=== PATIENT | male | born 1990 | race Caucasian/White ===

== ENCOUNTER 2018-10-10 06:20 | Emergency (ER) | payer OTHER ==
[~2018-10-10] VITALS: Ht 185.4 cm; Wt 128.4 kg
[2018-10-10] MEDS ORDERED: ondansetron/PF 4mg/2ml inj IV ONE (06:50)
[2018-10-10] MEDS ORDERED: normal saline 1000ML IV soln IVB ONE (06:50)
[2018-10-10] MEDS ORDERED: morphine 4 MG/ML inj SYRINge IV ONE (06:50)
[2018-10-10 07:30] LABS: BASOPHILS % (AUTO) 0.2 % (0-1); EOSINOPHILS % (AUTO) 0 % (0-6); HEMATOCRIT 48.4 % (42.0-52.0); HEMOGLOBIN 16.4 g/dl (14.0-17.9); LYMPHOCYTES % (AUTO) 17.5 % (21-51); MEAN CORPUSCULAR HEMOGLOBIN 29.8 PG (27.0-31.0); MEAN CORPUSCULAR HGB CONC 33.8 % (33.0-36.5); MEAN CORPUSCULAR VOLUME 88.1 FL (78-98); MEAN PLATELET VOLUME 7.9 FL (7.4-10.4); MONOCYTES # (AUTO) 0.3 X10'3 (0-0.9); MONOCYTES % (AUTO) 2.9 % (2-12); NEUTROPHILS # (AUTO) 8.9 X10'3 (1.8-7.7); NEUTROPHILS % (AUTO) 79.4 % (42-75); PLATELET COUNT 236 X10'3 (140-440); RED BLOOD COUNT 5.49 X10'6 (4.70-6.10); WHITE BLOOD COUNT 11.3 X10'3 (4.5-11.0)
[2018-10-10] MEDS ORDERED: LORazepam 2 mg/ml vial IV ONE (07:35)
[2018-10-10 07:43] LABS: CLARITY,URINE CLEAR (Clear); COLOR,URINE YELLOW (Yellow); GLUCOSE, URINE NEGATIVE (Neg); KETONES,URINE NEGATIVE (Neg); LEUKOCYTE ESTERASE ,URINE NEGATIVE (Neg); NITRITES, URINE NEGATIVE (Neg); OCCULT BLOOD,URINE NEGATIVE (Neg); PH,URINE 8.5 (4.8-8.0); PROTEIN,URINE NEGATIVE (Neg); UROBILINOGEN,URINE 0.2 E.U/dL (0.2-1.0)
[2018-10-10 07:44] LABS: INR 1.1 INR; PROTHROMBIN TIME 10.7 SECONDS (9.0-12.0)
[2018-10-10 07:44] LABS: UA COLLECTION TYPE CLN CATCH MIDSTREAM
[2018-10-10 07:45] LABS: ALANINE AMINOTRANSFERASE 59 U/L (12-78); ALBUMIN 4.6 G/DL (3.4-5.0); ALBUMIN/GLOBULIN RATIO 1.2 (1.1-1.5); ALKALINE PHOSPHATASE 73 IU/L (46-116); ANION GAP 12 (8-16); ASPARTATE AMINO TRANSFERASE 20 U/L (10-37); BILIRUBIN,TOTAL 0.7 MG/DL (0.1-1.0); BLOOD UREA NITROGEN 14 MG/DL (7-18); BUN/CREATININE RATIO 10.6 (5.4-32.0); CALCIUM 9.4 MG/DL (8.5-10.1); CHLORIDE 101 MMOL/L (99-107); CREATININE 1.32 MG/DL (0.60-1.10); GLUCOSE 122 MG/DL (70-104); LIPASE 72 U/L (73-393); POTASSIUM 3.4 MMOL/L (3.5-5.1); SODIUM 139 MMOL/L (135-145); TOTAL PROTEIN 8.6 G/DL (6.4-8.2); eGFR 65 ML/MIN
[2018-10-10 08:11] VITALS: BP 166/89
[2018-10-10] MEDS ORDERED: ONDA4TAB12 PO (08:51)
[2018-10-10] MEDS ORDERED: LORA0.5T PO (08:51)
[2018-10-11] MEDS ORDERED: DICY10CA88 PO (00:47)
[2018-10-11] MEDS ORDERED: POTA20TA19 PO (00:48)
== END 2018-10-10 09:03 | disposition home or self-care (01) ==
LOC: ER 06:21
DX: R10.84 Generalized abdominal pain (principal); R10.30 Lower abdominal pain, unspecified; R11.2 Nausea with vomiting, unspecified; E27.9 Disorder of adrenal gland, unspecified; F12.90 Cannabis use, unspecified, uncomplicated; Z88.1 Allergy status to other antibiotic agents
CPT/HCPCS: 36415; 74176; 80053; 81003; 83690; 85025; 85610; 96361; 96374; 96375; 99284; J2060; J2270; J2405; J7030

== ENCOUNTER 2018-10-10 19:19 | Emergency (ER) | payer OTHER ==
[~2018-10-10] VITALS: Ht 185.4 cm; Wt 131.0 kg
[~2018-10-10 19:19] MED LIST: LORA0.5T PO; ONDA4TAB12 PO
[2018-10-10] MEDS ORDERED: morphine 4 MG/ML inj SYRINge IV ONE (21:55)
[2018-10-10] MEDS ORDERED: normal saline 1000ML IV soln IVB ONE (21:55)
[2018-10-10] MEDS ORDERED: ketorolac trometh. 30mg/ml inj. IV ONE (21:55)
[2018-10-10] MEDS ORDERED: dicyclomine 10 MG capsule PO ONE (21:55)
[2018-10-10] MEDS ORDERED: normal saline 1000ml 1,000 ML IV ONE (21:55)
[2018-10-10] MEDS ORDERED: metoclopramide 5 mg/ml inj IV ONE (21:55)
[2018-10-10 22:33] LABS: CLARITY,URINE CLEAR (Clear); COLOR,URINE YELLOW (Yellow); GLUCOSE, URINE NEGATIVE (Neg); KETONES,URINE 15 mg/dl (Neg); LEUKOCYTE ESTERASE ,URINE NEGATIVE (Neg); NITRITES, URINE NEGATIVE (Neg); OCCULT BLOOD,URINE NEGATIVE (Neg); PH,URINE 7.5 (4.8-8.0); PROTEIN,URINE NEGATIVE (Neg); UROBILINOGEN,URINE 0.2 E.U/dL (0.2-1.0)
[2018-10-10 22:34] LABS: UA COLLECTION TYPE URINAL
[2018-10-10 22:37] LABS: URINE AMPHETAMINE SCREEN NEGATIVE (Neg); URINE BARBITUATE SCREEN NEGATIVE (Neg); URINE BENZODIAZEPINES SCREEN NEGATIVE (Neg); URINE CANNABINOID SCREEN POSITIVE (Neg); URINE COCAINE SCREEN NEGATIVE (Neg); URINE METHADONE SCREEN NEGATIVE (Neg); URINE OPIATE SCREEN NEGATIVE (Neg); URINE PHENCYCLIDINE SCREEN NEGATIVE (Neg)
[2018-10-10 22:41] LABS: ALANINE AMINOTRANSFERASE 45 U/L (12-78); ALBUMIN 4.3 G/DL (3.4-5.0); ALBUMIN/GLOBULIN RATIO 1.3 (1.1-1.5); ALKALINE PHOSPHATASE 70 IU/L (46-116); ANION GAP 16 (8-16); ASPARTATE AMINO TRANSFERASE 17 U/L (10-37); BILIRUBIN,TOTAL 0.9 MG/DL (0.1-1.0); BLOOD UREA NITROGEN 14 MG/DL (7-18); BUN/CREATININE RATIO 11.6 (5.4-32.0); CALCIUM 9.2 MG/DL (8.5-10.1); CHLORIDE 100 MMOL/L (99-107); CREATININE 1.21 MG/DL (0.60-1.10); GLUCOSE 110 MG/DL (70-104); LIPASE 60 U/L (73-393); SODIUM 138 MMOL/L (135-145); TOTAL CARBON DIOXIDE 22.5 MMOL/L (24-32); TOTAL PROTEIN 7.7 G/DL (6.4-8.2); eGFR 72 ML/MIN
[2018-10-10 22:44] LABS: BASOPHILS % (AUTO) 0.1 % (0-1); EOSINOPHILS % (AUTO) 0.1 % (0-6); HEMATOCRIT 46.4 % (42.0-52.0); HEMOGLOBIN 15.6 g/dl (14.0-17.9); LYMPHOCYTES # (AUTO) 2.3 X10'3 (1.1-4.8); MEAN CORPUSCULAR HEMOGLOBIN 29.7 PG (27.0-31.0); MEAN CORPUSCULAR HGB CONC 33.5 % (33.0-36.5); MEAN CORPUSCULAR VOLUME 88.6 FL (78-98); MONOCYTES # (AUTO) 0.5 X10'3 (0-0.9); MONOCYTES % (AUTO) 3.8 % (2-12); NEUTROPHILS # (AUTO) 9.3 X10'3 (1.8-7.7); PLATELET COUNT 219 X10'3 (140-440); POTASSIUM 2.8 MMOL/L (3.5-5.1); RED BLOOD COUNT 5.23 X10'6 (4.70-6.10); RED CELL DISTRIBUTION WIDTH 13.4 % (11.5-14.5); WHITE BLOOD COUNT 12.1 X10'3 (4.5-11.0)
[2018-10-10] MEDS ORDERED: potassium 10mEq/100ml NS w/LIDOcaine (10mg/bag) IV ONE (22:45)
[2018-10-10] MEDS ORDERED: magnesium 2GM in 50ml NS 50 ML IV ONE (22:45)
[2018-10-10 23:12] LABS: MAGNESIUM 1.6 MG/DL (1.5-2.4)
[2018-10-11] MEDS ORDERED: magnesium 2GM in 50ml NS 50 ML IV ONE
[2018-10-11] MEDS ORDERED: potassium 10mEq/100ml NS w/LIDOcaine (10mg/bag) IV ONE
[2018-10-11] MEDS ORDERED: DICY10CA88 PO (00:47)
[2018-10-11] MEDS ORDERED: POTA20TA19 PO (00:48)
[2018-10-11 01:25] VITALS: BP 125/54
== END 2018-10-11 01:51 | disposition home or self-care (01) ==
LOC: ER 19:20
DX: A08.39 Other viral enteritis (principal); R10.84 Generalized abdominal pain; F12.90 Cannabis use, unspecified, uncomplicated; Z88.1 Allergy status to other antibiotic agents; Z79.899 Other long term (current) drug therapy
CPT/HCPCS: 36415; 80053; 80305; 81003; 83690; 83735; 85025; 87502; 87503; 96361; 96365; 96366; 96375; 99283; J1885; J2270; J2765; J3475; J3480; J7030

== ENCOUNTER 2019-02-04 08:30 | Emergency (ER) | payer OTHER ==
[~2019-02-04] VITALS: Ht 185.4 cm; Wt 135.0 kg
[~2019-02-04 08:30] MED LIST changes: +DICY10CA88 PO; -LORA0.5T PO
[2019-02-04 08:50] VITALS: BP 137/77
[2019-02-04] MEDS ORDERED: ondansetron 4mg rapidly disintigrating tab PO ONE (12:55)
[2019-02-04] MEDS ORDERED: simethicone 80mg chew tab PO ONE (12:55)
[2019-02-04] MEDS ORDERED: ONDA4TAB12 PO (13:18)
[2019-02-04] MEDS ORDERED: diphenhydrAMINE 50 mg/ml inj IV ONE (13:25)
[2019-02-04] MEDS ORDERED: metoclopramide 5 mg/ml inj IV ONE (13:25)
[2019-02-04] MEDS ORDERED: normal saline 1000ML IV soln IVB ONE ×2 (13:25)
== END 2019-02-04 14:55 | disposition home or self-care (01) ==
LOC: ER 08:30
DX: E86.0 Dehydration (principal); R11.2 Nausea with vomiting, unspecified; R19.7 Diarrhea, unspecified; R10.13 Epigastric pain; R10.12 Left upper quadrant pain; R53.1 Weakness; F12.90 Cannabis use, unspecified, uncomplicated; Z60.2 Problems related to living alone; Z88.1 Allergy status to other antibiotic agents; Z79.899 Other long term (current) drug therapy
CPT/HCPCS: 96361; 96374; 96375; 99283; J1200; J2765; J7030

== ENCOUNTER 2019-02-06 06:52 | Emergency (ER) | payer OTHER ==
[~2019-02-06] VITALS: Ht 185.4 cm; Wt 135.0 kg
[2019-02-06 07:00] VITALS: BP 166/73
--- NOTE | 2019-02-06 07:06 | NUR ---
Spoke to EDMD regarding pt complaint, and recent ED visit. MD comfortable not ordering protocols at this time.
[2019-02-06] MEDS ORDERED: hydrOXYzine 25 MG tablet PO ONE (07:25)
[2019-02-06] MEDS ORDERED: ondansetron 4mg rapidly disintigrating tab PO ONE (07:25)
== END 2019-02-06 07:53 | disposition home or self-care (01) ==
LOC: ER 06:53
DX: F41.9 Anxiety disorder, unspecified (principal); E66.9 Obesity, unspecified; F12.90 Cannabis use, unspecified, uncomplicated; Z88.1 Allergy status to other antibiotic agents
CPT/HCPCS: 93005; 99283; Q0177